=== PATIENT | female | born 1995 | race Two or more races ===

== ENCOUNTER 2016-11-15 18:07 | Emergency (ER) | payer OTHER ==
--- NOTE | 2016-11-15 18:38 | EDPHY ---
H & P Time Seen by Provider: 11/15/16 18:35 HPI/ROS: CHIEF COMPLAINT: sore throat HISTORY OF PRESENT ILLNESS: 21-year-old immunocompetent female complaining 3 days of sore throat, rhinorrhea, nonproductive cough. No nuchal rigidity. No rash. No chest pain. No dyspnea. No abdominal pain. No nausea or vomiting. No international travel. REVIEW OF SYSTEMS: A ten point review of systems was performed and is negative with the exception of the items mentioned in the HPI PAST MEDICAL & SURGICAL HISTORY: No pertinent medical or surgical history SOCIAL HISTORY: nonsmoker PHYSICAL EXAM (Prior to examination, patient consented to physical exam, hands were washed and my usual and customary physical exam procedures followed) 1) GENERAL: Well-developed, well-nourished, alert and oriented. Appears to be in no acute distress. 2) HEAD: Normocephalic, atraumatic 3) HEENT: Pupils equal, round, reactive to light bilaterally. Sclera anicteric. Nasopharynx: Rhinorrhea. Oropharynx: Posterior oropharynx erythematous. Bilateral tonsils are enlarged, symmetrical, non exudate of. No trismus no drooling no hot potato voice. Ears bilaterally with normal tympanic membranes. 4) NECK: Full range of motion, no meningeal signs. Positive submandibular adenopathy. 5) LUNGS: Clear auscultation bilaterally, no wheezes, no rhonchi, no retractions. 6) HEART: Regular rate and rhythm, no murmur, no heave, no gallop. 7) ABDOMEN: No guarding, no rebound, no focal tenderness, negative McBurney's, negative Richmond's, negative Rovsing's, negative peritoneal sign, 8) MUSCULOSKELETAL: Moving all extremities, no focal areas of tenderness, no obvious trauma. No peripheral edema or discoloration. 9) BACK: No CVA tenderness, no midline vertebral tenderness, no fluctuance, no step-off, no obvious trauma, no visual or palpable abnormality. 10) SKIN: No rash, no petechiae. DIFFERENTIAL DIAGNOSIS: in no particular include but limited to meningitis, strep pharyngitis, peritonsillar abscess, viral pharyngitis Smoking Status: Never smoked Constitutional: Initial Vital Signs Temperature (C) 37.3 C 11/15/16 18:13 Heart Rate 98 11/15/16 18:13 Respiratory Rate 18 11/15/16 18:13 Blood Pressure 99/75 L 11/15/16 18:13 O2 Sat (%) 97 11/15/16 18:13 O2 Delivery Mode Room Air Allergies/Adverse Reactions: No Known Allergies Allergy (Verified 11/15/16 18:13) Home Medications: Medication Instructions Recorded Ibuprofen [Motrin (*)] 800 mg PO Q6 #15 tab 07/19/14 Ibuprofen [Motrin (*)] 800 mg PO Q6 #15 tab 11/15/16 MDM/Departure - MDM ED Course/Re-evaluation: 7:40 p.m.: Re-evaluation. Discussed her negative strep pharyngitis testing. On the patient's symptoms are more likely secondary to non strep pathology. We discussed supportive care. Doubt peritonsillar abscess. She feels comfortable being discharged - Depart Disposition: Home, Routine, Self-Care Clinical Impression: Acute pharyngitis Qualifiers: Pharyngitis/tonsillitis etiology: other specified organisms Qualified Code(s): J02.8 - Acute pharyngitis due to other specified organisms Condition: Good Instructions: Pharyngitis (ED) Additional Instructions: Return to the ER immediately if you cannot swallow, have drooling, fevers, neck stiffness, cannot open your jaw, or any other symptoms that concern you. Stand Alone Forms: School Excuse, Work Excuse Prescriptions: Ibuprofen [Motrin (*)] 800 mg PO Q6 #15 tab Referrals: [facility],. [Clinic] - 1-2 days without fail
[2016-11-15 19:59] VITALS: BP 115/71; PULSE 78; RESP 17; TEMP 97.7; O2SAT 96
== END 2016-11-15 19:57 | disposition home or self-care (01) ==
DX: J02.9 Acute pharyngitis, unspecified (principal)